=== PATIENT | female | born 1990 | race Two or more races ===

== ENCOUNTER 2017-12-04 12:49 | Emergency (ER) | payer BC ==
[~2017-12-04] VITALS: Ht 170.2 cm; Wt 74.8 kg
--- NOTE | 2017-12-04 13:09 | NUR ---
MSE COMPLETED, PT D/C'D HOME,A CI/RX X1 GIVEN. PT AMBULATED W/O DIFF/TOOK ALL BELONGINGS
[2017-12-04 13:10] VITALS: BP 133/88
== END 2017-12-04 13:11 | disposition home or self-care (01) ==
LOC: ER 12:51
DX: J20.9 Acute bronchitis, unspecified (principal)
CPT/HCPCS: A4663

== ENCOUNTER → 2017-12-28 | Outpatient (CLI) | payer BC, OTHER ==
[~2017-12-28] MED LIST: CEFAZOLIN 50 ML IV ONE
[2017-12-28 11:30] LABS: BASOPHILS % (AUTO) 0.6 % (0.0-2.0); EOSINOPHILS # (AUTO) 0.2 K/uL (0.0-0.7); EOSINOPHILS % (AUTO) 2.5 % (0.0-7.0); HEMATOCRIT 39.5 % (31.2-41.9); HEMOGLOBIN 13.7 g/dL (10.9-14.3); LYMPHOCYTES # (AUTO) 1.9 K/uL (20.0-40.0); LYMPHOCYTES % (AUTO) 30.3 % (20.5-51.5); MEAN CORPUSCULAR HEMOGLOBIN 32.4 uug (24.7-32.8); MEAN CORPUSCULAR HGB CONC 35 g/dL (32.3-35.6); MEAN CORPUSCULAR VOLUME 93.6 fL (75.5-95.3); MONOCYTES # (AUTO) 0.4 K/uL (2.0-10.0); MONOCYTES % (AUTO) 6.9 % (0.0-11.0); NEUTROPHILS # (AUTO) 3.7 K/uL (1.8-8.9); NEUTROPHILS % (AUTO) 59.7 % (38.5-71.5); PLATELET COUNT (AUTO) 203 K/uL (179-408); RED BLOOD CELL COUNT(AUTO) 4.22 MIL/uL (3.63-4.92); WHITE BLOOD COUNT (AUTO) 6.3 K/uL (3.8-11.8)
[2017-12-28 11:35] LABS: BILIRUBIN,TOTAL 0.3 mg/dL (0.2-1.0); CREATININE 0.9 mg/dL (0.6-1.3); POTASSIUM 3.9 mmol/L (3.5-5.1); TOTAL PROTEIN, SERUM 7.5 g/dL (6.4-8.2)
== END | disposition home or self-care (01) ==
LOC: LAB 10:46
DX: N91.0 Primary amenorrhea (principal); N72 Inflammatory disease of cervix uteri; R87.619 Unspecified abnormal cytological findings in specimens from cervix uteri
CPT/HCPCS: 36415; 85025; 85730; 86850; 86900; 86901

== ENCOUNTER 2017-12-31 11:59 | Day surgery (SDC) | payer BC ==
[2017-12-31] MEDS ORDERED: PROPOFOL 200 MG/20 ML BOTTLE IV ONE (12:00)
[2017-12-31] MEDS ORDERED: ONDANSETRON 4 MG/2 ML VIAL IV ONE (12:00)
[2017-12-31] MEDS ORDERED: CEFAZOLIN 1 G VIAL MC ONE (12:00)
[2017-12-31] MEDS ORDERED: DEXAMETHASONE SOD PHOSPHATE 4 MG INJ IV ONE (12:00)
[2017-12-31] MEDS ORDERED: IV LACTATED RINGERS SOLUTION 1,000 ML BAG IV ONE (12:00)
[2017-12-31] MEDS ORDERED: LIDOCAINE HCL 2% 20 ML VIAL MC ONE (12:00)
[2017-12-31 12:37] LABS: *BILIRUBIN,URIN NEGATIVE (NEGATIVE); *BLOOD, URINE NEGATIVE (NEGATIVE); *CLARITY,URINE CLEAR (CLEAR); *COLOR,URINE YELLOW (YELLOW); *KETONES,URINE NEGATIVE (NEGATIVE); *PROTEIN,URINE NEGATIVE (NEGATIVE); *UROBILINOGEN,URINE 0.2 E.U./dl (NORMAL); LEUKOCYTE ESTERASE ,URINE NEGATIVE (NEGATIVE); NITRITE, URINE NEGATIVE (NEGATIVE); PH,URINE 5.5 (5.0-8.0); UGLUCOSE NEGATIVE (NEGATIVE)
[2017-12-31 12:39] LABS: *URINE HCG, QUAL NEGATIVE (NEGATIVE)
[2017-12-31 12:42] LABS: BACTERIA,URINE MODERATE /HPF (NONE SEEN); RBC,URINE 0-3 /HPF (0-3); SQUAMOUS EPITHELIAL CELL,UR MODERATE /HPF (NONE SEEN)
[2017-12-31] MEDS ORDERED: MIDAZOLAM HCL 2 MG/2 ML VIAL ONE (13:33)
[2017-12-31] MEDS ORDERED: SEVOFLURANE 250 ML BOTTLE ONE (13:40)
== END 2017-12-31 16:04 | disposition home or self-care (01) ==
LOC: DS 11:59
PROVIDERS: ATTEND Obstetrics & Gynecology
DX: N87.1 Moderate cervical dysplasia (principal)
CPT/HCPCS: 84703; A4649; J0690; J1100; J2250; J2405; J3490; J7120

== ENCOUNTER 2019-01-27 15:10 | Outpatient (CLI) | payer BC, OTHER ==
[2019-01-27 15:38] LABS: *BILIRUBIN,URIN NEGATIVE (NEGATIVE); *BLOOD, URINE NEGATIVE (NEGATIVE); *CLARITY,URINE CLEAR (CLEAR); *COLOR,URINE DARK YELLOW (YELLOW); *KETONES,URINE NEGATIVE (NEGATIVE); *UROBILINOGEN,URINE 0.2 E.U./dl (NORMAL); LEUKOCYTE ESTERASE ,URINE NEGATIVE (NEGATIVE); NITRITE, URINE NEGATIVE (NEGATIVE); PH,URINE 5.5 (5.0-8.0); UGLUCOSE NEGATIVE (NEGATIVE)
[2019-01-27 15:43] LABS: MUCUS,URINE MANY /LPF (0-FEW); SQUAMOUS EPITHELIAL CELL,UR FEW /HPF (NONE SEEN)
[2019-01-27 15:44] LABS: BACTERIA,URINE FEW /HPF (NONE SEEN)
[2019-01-27 15:45] LABS: RBC,URINE 0-3 /HPF (0-3)
[2019-01-27 15:56] LABS: THYROID STIMULATING HORMONE 0.91 mIU/mL (0.358-3.740)
[2019-01-27 16:05] LABS: BILIRUBIN,TOTAL 0.8 mg/dL (0.2-1.0); CREATININE 0.7 mg/dL (0.6-1.3); TOTAL PROTEIN, SERUM 7.6 g/dL (6.4-8.2)
== END 2019-01-27 23:59 | disposition home or self-care (01) ==
LOC: LAB 15:10
PROVIDERS: ATTEND Family Medicine
DX: R63.0 Anorexia (principal)
CPT/HCPCS: 36415; 83550; 84443; 87086

== ENCOUNTER → 2019-05-16 | Outpatient (CLI) | payer BC, OTHER | END | disposition home or self-care (01) | LOC: LAB 14:19 | PROVIDERS: ATTEND Family Medicine | DX: L28.2 Other prurigo (principal) | CPT/HCPCS: 82785 ==

== ENCOUNTER 2019-10-09 14:36 | Emergency (ER) | payer BC, OTHER ==
[~2019-10-09] VITALS: Ht 170.2 cm; Wt 69.9 kg
--- NOTE | 2019-10-09 15:38 | NUR ---
Patient discharged to home in stable conditon. Written and verbal after care instructions given. Patient verbalizes understanding of instructions.pt walks in steady gait.
== END 2019-10-09 15:39 | disposition home or self-care (01) ==
LOC: ER 14:36
DX: S89.91XA Unspecified injury of right lower leg, initial encounter (principal); X50.9XXA Other and unspecified overexertion or strenuous movements or postures, initial encounter; Y93.89 Activity, other specified; Y92.039 Unspecified place in apartment as the place of occurrence of the external cause
CPT/HCPCS: A4663

== ENCOUNTER 2020-03-23 12:44 | Outpatient (CLI) | payer BC, OTHER | END 2020-03-23 23:59 | disposition home or self-care (01) | LOC: CT 12:44 | PROVIDERS: ATTEND Family Medicine | DX: M26.69 Other specified disorders of temporomandibular joint (principal) | CPT/HCPCS: 70486 ==